=== PATIENT | female | born 1970 | race Caucasian/White ===

== ENCOUNTER → 2018-10-07 | Outpatient (CLI) | payer BC ==
[2018-10-09 15:08] LABS: HPV 16 Negative (Negative); HPV 18 Negative (Negative); HPV OTHER HR TYPES Negative (Negative)
== END | disposition home or self-care (01) ==
LOC: LAB 10:25 → LAB SHORT 10:25
PROVIDERS: Obstetrics & Gynecology
DX: Z01.419 Encounter for gynecological examination (general) (routine) without abnormal findings (principal)
CPT/HCPCS: 87624; G0123

== ENCOUNTER 2022-08-15 01:52 | Emergency (ER) | payer BC ==
[~2022-08-15] VITALS: Ht 165.1 cm; Wt 48.5 kg
== END 2022-08-15 05:58 | disposition home or self-care (01) ==
LOC: ER 01:52
DX: T40.711A Poisoning by cannabis, accidental (unintentional), initial encounter (principal); F41.9 Anxiety disorder, unspecified; R11.0 Nausea
CPT/HCPCS: 36415; 93005; 93010; A9270; J1790

== ENCOUNTER → 2025-01-05 | Outpatient (CLI) | payer OTHER ==
[2025-01-05 17:51] LABS: Creatinine Urine 43.6 mg/dL (27.00-270.00)
[2025-01-09 05:49] LABS: CORTISOL,U FREE - RATIO TO CRT 33.04 ug/g CRT; CORTISOL,URINE FREE - PER 24H 28.9 ug/d (<=45.0); CREATININE,URINE - PER 24H 874 mg/d (500-1400); CREATININE,URINE - PER VOLUME 46 mg/dL; HOURS COLLECTED 24 hr; TOTAL VOLUME 1900 mL
== END | disposition home or self-care (01) ==
LOC: LAB SHORT 07:30 → LAB 07:30
PROVIDERS: Naturopath
DX: R79.89 Other specified abnormal findings of blood chemistry (principal)
CPT/HCPCS: 81050; 82530; 82570